=== PATIENT | male | born 1955 | race African-American/Black ===

== ENCOUNTER 2016-10-14 19:14 | Observation (INO) | payer OTHER ==
--- NOTE | ~2016-10-14 | HP ---
History And Physical [id number] [place]. [address] NAME: BLANCA GALARZA : 59 STATUS : ADM Gustavo PAT#: [id number] AGE: 61 ADM/REG DATE : 10/14/16 MR#: [id number] REPORT SERV DATE: 10/15/16 DICTATED BY: LEONARD BAUTISTA DATE: 10/15/16 REPORT STATUS : Draft TRANSCRIBED BY: MODFer DATE: 10/15/16 DATE OF ADMISSION: 10/14/2016 PRIMARY CARE PROVIDER: Currently patient of Dr. Cuenca in [place] with a new patient appointment with Dr. Nguyen in [place], [place]. CHIEF COMPLAINT: Chest pressure. HISTORY OF PRESENT ILLNESS: This is a 61-year-old male with a history of hypertension, TIA, obesity, family history of premature CAD in mother. He reports he experienced approximately 5 seconds of chest pressure while he was sitting at work. He was evaluated by his boss who is an M.D. He was found to have a slightly elevated blood pressure 145/105 and he recommended calling EMS. The patient currently denies any chest pain, shortness of breath, diaphoresis or palpitations. He denies any exertional component to the chest pain. He denies any other chest pain or chest pressure other than that brief chest pressure yesterday. He did report feeling heaviness in his feet during this brief event. He reports he is scheduled to have a sleep study with his new primary care provider. He does also ascribe to intermittent palpitations for a few months but he did not have any yesterday associated with the event. He reportedly had a normal Holter done with . He denies any complaints at this present time. PAST MEDICAL HISTORY: 1. TIA. 2. Hypertension. 3. Asthma. 4. Hiatal hernia. 5. Irritable bowel syndrome. 6. Prostate cancer not requiring chemo or radiation. 7. Pseudofolliculitis. 8. Keloids in his groin and rectum. 9. GERD. 10.Status post colonoscopy. PAST SURGICAL HISTORY: 1. Hernia repair in 1976. 2. Prostatectomy in 2007. 3. Spinal tap for keloids. SOCIAL HISTORY: with 2 adult children and 2 grandchildren. He works as a medical transport specialist. He denies any tobacco. He drinks several glasses of red wine daily. He denies any illicit drugs. He has no formal exercise program. FAMILY HISTORY: Mother with myocardial infarction at the age of 54, still alive. Father with history of polymyositis. ALLERGIES: NO KNOWN ALLERGIES. History And Physical [address] [place]. [address] NAME: BLANCA GALARZA : 59 STATUS : ADM Gustavo PAT#: [id number] AGE: 61 ADM/REG DATE : 10/14/16 MR#: [id number] REPORT SERV DATE: 10/15/16 DICTATED BY: LEONARD BAUTISTA DATE: 10/15/16 REPORT STATUS : Draft TRANSCRIBED BY: SARAH DATE: 10/15/16 HOME MEDICATIONS: List reviewed and is as follows: 1. Tylenol 325 mg p.o. daily as needed for pain. 2. Plavix 75 mg p.o. every morning. 3. Vitamin B12, 1000 mcg p.o. every morning. 4. Toprol-XL 25 mg p.o. every morning. 5. Protonix 40 mg p.o. daily. REVIEW OF SYSTEMS: The patient denies having any nuclear stress testing or coronary arteriogram. Again, he reports a Holter monitor that was reportedly normal. As above per HPI, all other systems reviewed and negative. PHYSICAL EXAMINATION: VITAL SIGNS: Oxygen saturation 95% on room air, height 170.18 cm, weight 86.77 kg, body mass index equals 30.0, temperature 98.1, pulse 59, respiratory rate 16, blood pressure initially 145/91, most recent 105/61. GENERAL: Well developed, well nourished. In no apparent distress. HEENT: Head normocephalic. No xanthelasma. Sclera clear, anicteric. Moist mucous membranes without pallor. No lymphadenopathy. No deficits noted. NECK: Trachea midline. Supple. No thyromegaly, JVD, or bruits. RESPIRATORY: Unlabored respirations. Breath sounds clear bilaterally to posterior auscultation. No wheezes, rhonchi or crackles. CARDIOVASCULAR: Regular rate and rhythm. No murmur, rub, or gallop appreciated. No chest wall tenderness to palpation. ABDOMEN: Soft, nontender, and nondistended. Active bowel sounds auscultated x4 quadrants. No organomegaly and no masses. No aortic bruit. EXTREMITIES: DP/PT and radial pulses 2+ all extremities. No clubbing, cyanosis. Trace bilateral lower extremity edema. SKIN: Warm, dry, intact. No rash. Normal turgor. MUSCULOSKELETAL: Moves all extremities in bed without difficulty. NEURO/PSYCH: Alert and oriented x3 with no acute distress. Affect appropriate to current situation. LABORATORY DATA: BMP: Sodium 143, potassium 3.8, creatinine mildly abnormal at 1.3, glucose 98, calcium 8.6, magnesium 2. CBC: White blood cell count 6.2, hemoglobin 15.1, hematocrit 44.9, platelets 164. Troponin less than 0.02 x2. Chest x-ray, no acute processes. EKGs personally interpreted x3. Overnight EKGs in the Chest Pain Observation Unit revealed sinus bradycardia, rate 57, with no ischemia. First EKG in the emergency department, normal sinus rhythm, rate 66, with no ischemia. Telemetry, sinus rhythm, 60s. ASSESSMENT AND PLAN: 1. Precordial chest pain with atypical features. This pain lasted only 5 seconds and had no associated symptoms other than leg weakness. He was ruled out for acute coronary syndrome with two negative troponins and 3 EKGs that were benign for ischemia. Cardiac risk factors include hypertension, obesity, family history of premature coronary artery disease, and age of 61. We will proceed with a nuclear stress test for risk History And Physical [address] [address] NAME: BLANCA GALARZA : 59 STATUS : ADM Gustavo PAT#: [id number] AGE: 61 ADM/REG DATE : 10/14/16 MR#: [id number] REPORT SERV DATE: 10/15/16 DICTATED BY: LEONARD BAUTISTA DATE: 10/15/16 REPORT STATUS : Draft TRANSCRIBED BY: SARAH DATE: 10/15/16 stratification. If it is low risk with no ischemia, RN is to discharge the patient to home with followup with his primary care provider in 1 to 2 weeks. 2. Hypertension is well controlled here. He is on metoprolol succinate at home and this will be resumed after his stress test. He may monitor his blood pressure at home, record and bring in a log to his primary care provider in one to two weeks. 3. History of transient ischemic attack. We will continue his home Plavix dosage. Further recommendations forthcoming from rounding webmethods consultant for [facility] who will see the patient down in the stress testing area. REBECA/SARAH Leonard Bautista NP / [id number]
[2016-10-14 20:10] LABS: BASOPHILS 0.6 %; BASOPHILS ABSOLUTE 0.04 10/3/uL (0.0-0.16); EOSINOPHILS 1.1 %; EOSINOPHILS ABSOLUTE 0.07 10/3/uL (0.0-0.53); HEMATOCRIT 44.9 % (40.0-51.0); HEMOGLOBIN 15.1 g/dL (13.6-17.8); IMMATURE GRANULOCYTES 0.2 %; IMMATURE GRANULOCYTES ABSOLUTE 0.01 10/3/uL (0.0-0.11); LYMPHOCYTES 17.4 %; LYMPHOCYTES ABSOLUTE 1.08 10/3/uL (0.67-4.30); MEAN CORPUS HGB CONC 33.6 g/dL (32.0-36.0); MEAN CORPUSCULAR HEMOGLOB 27.9 pg (26.0-34.0); MEAN PLATELET VOLUME 12.4 fL (9.2-13.0); MONOCYTES 8.2 %; MONOCYTES ABSOLUTE 0.51 10/3/uL (0.21-1.20); NEUTROPHILS 72.5 %; NEUTROPHILS ABSOLUTE 4.48 10/3/uL (2.02-8.40); PLATELET COUNT 164 10/3/uL (150-400); RBC DISTRIBUTION WIDTH 13.9 % (12.0-16.0); RED CELL COUNT 5.41 10/6/uL (4.7-6.1); WHITE BLOOD CELLS 6.2 10/3/uL (4.5-10.5)
[2016-10-14 20:11] LABS: MANUAL DIFF NO %
[2016-10-14 20:17] LABS: INTERNATIONAL NORMAL RATI 1.1 UNITS (-); PARTIAL THROMBO TIME 26.9 SEC (22.5-37.2); PROTIME (NOT ORD) 13.9 SEC (12.0-14.5)
[2016-10-14 20:26] LABS: BUN (BLOOD UREA NITROGEN) 10 MG/DL (6-23); CALCIUM, SERUM 8.6 MG/DL (8.5-10.4); CHEST PAIN PROFILE TAT 0 Hrs 20 Mins; CHLORIDE, SERUM 106 MMOL/L (96-112); CO2 (CARBON DIOXIDE) 28 MMOL/L (24-34); GFR AFRICAN AMERICAN 69 ML/MIN (>=60); GFR NON AFRICAN AMERICAN 60 ML/MIN (>=60); GLUCOSE, SERUM 98 MG/DL (60-99); POTASSIUM, SERUM 3.8 MMOL/L (3.5-5.3); SODIUM, SERUM 143 MMOL/L (135-148); TROPONIN I <0.02 NG/ML (<0.05)
[2016-10-14] MEDS ORDERED: PROTONIX PO (20:56)
[2016-10-14] MEDS ORDERED: CYANO1000T PO (20:56)
[2016-10-14] MEDS ORDERED: PLAVIX PO (20:56)
[2016-10-14] MEDS ORDERED: TOPXL25 PO (20:56)
[2016-10-14] MEDS ORDERED: T PO (20:57)
== END 2016-10-15 13:21 | disposition home or self-care (01) ==
LOC: ER 19:14 → CDU1 21:34
PROVIDERS: Nurse Practitioner Acute Care
DX: R07.2 Precordial pain (principal); I10 Essential (primary) hypertension; J45.909 Unspecified asthma, uncomplicated; K44.9 Diaphragmatic hernia without obstruction or gangrene; K58.9 Irritable bowel syndrome, unspecified; K21.9 Gastro-esophageal reflux disease without esophagitis; Z79.899 Other long term (current) drug therapy; Z85.46 Personal history of malignant neoplasm of prostate; Z98.890 Other specified postprocedural states; Z79.02 Long term (current) use of antithrombotics/antiplatelets; Z86.73 Personal history of transient ischemic attack (TIA), and cerebral infarction without residual deficits; E66.9 Obesity, unspecified
CPT/HCPCS: 71010; 78452; 80048; 83735; 84484; 85025; 85610; 85730; 93005; 93017; 99285; A9270-GY; A9502; G0378